=== PATIENT | female | born 1990 | race Caucasian/White ===

== ENCOUNTER 2017-06-13 06:35 | Emergency (ER) | payer MEDICAID ==
[2017-06-13 06:48] VITALS: O2SAT 99
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
[2017-06-13 08:40] VITALS: BP 94/60; PULSE 61; RESP 18; TEMP 98.5
--- NOTE | 2017-06-13 08:56 | RAD ---
PROCEDURE: Radiographs of the left elbow. HISTORY: trauma COMPARISON: None available. FINDINGS: BONES: No acute displaced fracture. JOINTS: No dislocation. SOFT TISSUES: No evidence of radiopaque foreign body. JOINT EFFUSION: Elevated anterior fat pad. Trace posterior fat pad. OTHER FINDINGS: None IMPRESSION: Elevated anterior fat pad. Trace posterior fat pad. Appearance consistent with occult fracture. Correlate clinically and suggest cross-sectional imaging if indicated.
== END 2017-06-13 08:48 | disposition home or self-care (01) ==
LOC: C.ER 06:35
DX: M25.422 Effusion, left elbow (principal)